=== PATIENT | male | born 1975 | race Hispanic/Latino ===

== ENCOUNTER 2019-04-08 20:14 | Emergency (ER) | payer OTHER | END 2019-04-08 20:30 | LOC: EDH 20:14 | DX: S60.511A Abrasion of right hand, initial encounter (principal); Z87.891 Personal history of nicotine dependence; X58.XXXA Exposure to other specified factors, initial encounter; Y93.89 Activity, other specified; Y92.89 Other specified places as the place of occurrence of the external cause; Y99.8 Other external cause status ==

== ENCOUNTER 2023-02-01 18:36 | Emergency (ER) | payer OTHER ==
[~2023-02-01] VITALS: Ht 170.2 cm; Wt 72.6 kg
[2023-02-01 18:43] VITALS: BP 124/69
== END 2023-02-01 22:07 | disposition left against medical advice (07) ==
LOC: EDH 18:36
DX: R10.9 Unspecified abdominal pain (principal); Z53.21 Procedure and treatment not carried out due to patient leaving prior to being seen by health care provider
CPT/HCPCS: 99281